=== PATIENT | female | born 1955 | race Caucasian/White ===

== ENCOUNTER 2016-11-06 05:40 | Day surgery (SDC) | payer MEDICAID ==
[2016-11-05 15:00] LABS: BASOPHILS 0.6 % (0-2); EOSINOPHILS 2.5 % (0-7); HEMATOCRIT 37.5 % (36.0-48.0); HEMOGLOBIN 11.9 g/dL (12-16); IMMATURE GRANULOCYTES 0.6 % (0-5); LYMPHOCYTES 28.1 % (15-50); MCHC 31.7 g/dL (31.0-37.0); MCV 94.5 fL (80.0-100.0); MEAN PLATELET VOLUME 9.5 fL (7.4-10.4); MONOCYTES 5.9 % (2-11); NEUTROPHILS 62.3 % (40-80); PLATELET COUNT 234 10x3/uL (130-400); RBC 3.97 10x6/uL (4.00-5.40); WBC 8.3 10x3/uL (4.8-10.8)
[~2016-11-06] VITALS: Ht 160 cm; Wt 104.3 kg
[~2016-11-06 05:40] MED LIST: CELEXA40 MG; CELEXA40 MG PO; HYZAAR 50-12.51 TAB PO; OMEPRAZOLE20 M1 PO; TRAZODONE HCL50 MG PO; ZOCOR10 MG
[2016-11-06] MEDS ORDERED: ZYRTEC10 MG PO (06:17)
[2016-11-06 06:18] VITALS: BP 127/71; Ht 160 cm; Wt 104.3 kg
[2016-11-06] MEDS ORDERED: XANAX0.5 MG PO (06:18)
--- NOTE | 2016-11-06 09:28 | NUR ---
PATIENT RATING PAIN AT AN 8, REBLOCKED BY ANESTHESIA
--- NOTE | 2016-11-06 11:05 | NUR ---
1025--PT COMPLAINS OF PAIN, RATES PAIN 7/10. NORCO 10/325MG X2 GIVEN PO, WILL CONTINUE TO MONITOR. LUCILA MALDONADO 1105--PT REPORTS FEELING BETTER, RATES PAIN 5/10. IV DC'D, PT UP TO DRESS AT THIS TIME. LUCILA MALDONADO
--- NOTE | 2016-11-06 17:07 | NUR ---
1120--IV DC'D. LUCILA MALDONADO 1127--DISCHARGE INSTRUCTIONS GIVEN, PT VERBALIZES UNDERSTANDING. PT OFF UNIT VIA WC. LUCILA MALDONADO
== END 2016-11-06 11:27 | disposition home or self-care (01) ==
LOC: D.OPS 05:40 → D.PAN 07:45 → D.OPS 07:45
PROVIDERS: Anesthesiology
DX: M77.32 Calcaneal spur, left foot (principal); M76.62 Achilles tendinitis, left leg; Z01.810 Encounter for preprocedural cardiovascular examination; Z01.811 Encounter for preprocedural respiratory examination; Z01.812 Encounter for preprocedural laboratory examination

== ENCOUNTER → 2016-11-13 12:10 | Outpatient (CLI) | payer MEDICAID ==
[2016-11-06 06:18] VITALS: BMI 40.8
[~2016-11-13 12:10] MED LIST changes: +XANAX0.5 MG PO; +ZYRTEC10 MG PO
== END | disposition home or self-care (01) ==
LOC: D.US 12:10
DX: I82.4Z2 Acute embolism and thrombosis of unspecified deep veins of left distal lower extremity (principal)

== ENCOUNTER 2016-12-02 13:43 | Emergency (ER) | payer MEDICAID ==
[2016-11-06 06:18] VITALS: BMI 40.8
== END 2016-12-02 18:15 | disposition home or self-care (01) ==
LOC: D.ER 13:43
DX: I82.402 Acute embolism and thrombosis of unspecified deep veins of left lower extremity (principal); M79.662 Pain in left lower leg; R22.42 Localized swelling, mass and lump, left lower limb; I10 Essential (primary) hypertension; F32.9 Major depressive disorder, single episode, unspecified

== ENCOUNTER 2017-04-14 16:07 | Emergency (ER) | payer MEDICAID ==
[2016-11-06 06:18] VITALS: BMI 40.8
== END 2017-04-14 18:20 | disposition home or self-care (01) ==
LOC: D.ER 16:07
DX: S00.83XA Contusion of other part of head, initial encounter (principal); S60.212A Contusion of left wrist, initial encounter; S80.02XA Contusion of left knee, initial encounter; W19.XXXA Unspecified fall, initial encounter; Y93.89 Activity, other specified; Y92.019 Unspecified place in single-family (private) house as the place of occurrence of the external cause; I10 Essential (primary) hypertension

== ENCOUNTER → 2017-06-16 17:51 | Outpatient (CLI) | payer MEDICAID ==
[2016-11-06 06:18] VITALS: BMI 40.8
== END | disposition home or self-care (01) ==
LOC: D.MAMMO 04-25 15:00
DX: Z12.31 Encounter for screening mammogram for malignant neoplasm of breast (principal)

== ENCOUNTER → 2017-08-06 19:29 | Outpatient (CLI) | payer MEDICAID ==
[2016-11-06 06:18] VITALS: BMI 40.8
== END | disposition home or self-care (01) ==
LOC: D.MAMMO 07-28 15:00 → D.US 07-28 15:30 → D.MAMMO 13:30
DX: N63.20 Unspecified lump in the left breast, unspecified quadrant (principal); R92.8 Other abnormal and inconclusive findings on diagnostic imaging of breast

== ENCOUNTER → 2017-09-10 10:39 | Outpatient (CLI) | payer MEDICAID ==
[2016-11-06 06:18] VITALS: BMI 40.8
== END | disposition home or self-care (01) ==
LOC: D.US 10:39
DX: R10.9 Unspecified abdominal pain (principal)

== ENCOUNTER → 2017-09-18 12:26 | Outpatient (CLI) | payer MEDICAID ==
[2016-11-06 06:18] VITALS: BMI 40.8
== END | disposition home or self-care (01) ==
LOC: D.CT 12:26
DX: N13.30 Unspecified hydronephrosis (principal)

== ENCOUNTER 2017-11-02 09:37 | Emergency (ER) | payer MEDICAID ==
[~2017-11-02] VITALS: Ht 160 cm; Wt 108.2 kg
[2017-11-02 09:44] VITALS: Ht 160 cm; Wt 108.2 kg
[2017-11-02 10:10] LABS: BASOPHILS 0.4 % (0-2); EOSINOPHILS 2.6 % (0-7); HEMATOCRIT 39.4 % (36.0-48.0); IMMATURE GRANULOCYTES 0.3 % (0-5); MCH 31.4 pg (26.0-34.0); MCV 95.2 fL (80.0-100.0); MEAN PLATELET VOLUME 9.3 fL (7.4-10.4); MONOCYTES 7.3 % (2-11); NEUTROPHILS 65.4 % (40-80); PLATELET COUNT 208 10x3/uL (130-400); RBC 4.14 10x6/uL (4.00-5.40); RDW 13.4 % (11.5-14.5); WBC 7.2 10x3/uL (4.8-10.8)
[2017-11-02 10:27] LABS: ALBUMIN 3.4 g/dL (3.4-5.0); ANION GAP 10.5 mmol/L (8-16); BILIRUBIN - TOTAL 0.48 mg/dL (0.2-1.3); CALCIUM 8.7 mg/dL (8.5-10.1); POTASSIUM - SERUM 3.5 mmol/L (3.5-5.1); PROTEIN - SERUM 7.5 g/dL (6.4-8.2)
[2017-11-02 11:56] VITALS: BP 136/86
== END 2017-11-02 11:57 | disposition home or self-care (01) ==
LOC: D.ER 09:37
PROVIDERS: Family Medicine
DX: K64.9 Unspecified hemorrhoids (principal); K59.00 Constipation, unspecified; I10 Essential (primary) hypertension

== ENCOUNTER → 2018-04-29 20:08 | Outpatient (CLI) | payer MEDICAID ==
[2017-11-02 09:44] VITALS: BMI 42.2
== END | disposition home or self-care (01) ==
LOC: D.MAMMO 04-27 10:30 → D.US 04-27 11:00 → D.MAMMO 14:00
DX: N63.21 Unspecified lump in the left breast, upper outer quadrant (principal)

== ENCOUNTER 2019-04-27 15:11 | Inpatient (IN) | payer MEDICAID ==
[~2019-04-27] VITALS: Ht 160 cm; Wt 91.8 kg
[2019-04-27 16:07] LABS: BASOPHILS 0.4 % (0-2); EOSINOPHILS 1.5 % (0-7); HEMATOCRIT 43.6 % (36.0-48.0); HEMOGLOBIN 14.8 g/dL (12-16); IMMATURE GRANULOCYTES 0.4 % (0-5); LYMPHOCYTES 19.4 % (15-50); MCH 32.4 pg (26.0-34.0); MCHC 33.9 g/dL (31.0-37.0); MCV 95.4 fL (80.0-100.0); MEAN PLATELET VOLUME 9.3 fL (7.4-10.4); MONOCYTES 7.1 % (2-11); NEUTROPHILS 71.2 % (40-80); RBC 4.57 10x6/uL (4.00-5.40); RDW 12.7 % (11.5-14.5); WBC 10.9 10x3/uL (4.8-10.8)
[2019-04-27 16:08] LABS: PLATELET COUNT 250 10x3/uL (130-400)
[2019-04-27 16:24] LABS: ANION GAP 11.4 mmol/L (8-16); CALCIUM 9.3 mg/dL (8.5-10.1); CARBON DIOXIDE 27.9 mmol/L (21.0-32.0); CREATININE - SERUM 0.9 mg/dL (0.6-1.3); INR 0.99 (0.85-1.17); POTASSIUM - SERUM 3.3 mmol/L (3.5-5.1); PROTIME 13.1 SECONDS (11.6-15.0)
[2019-04-27 16:30] LABS: ALBUMIN 3.7 g/dL (3.4-5.0); BILIRUBIN - TOTAL 0.46 mg/dL (0.2-1.3); PROTEIN - SERUM 8.2 g/dL (6.4-8.2)
[2019-04-27 16:39] VITALS: BP 175/75
[2019-04-27 17:43] VITALS: BP 134/88
[2019-04-27] MEDS ORDERED: VALSARTAN-HCTZ1 EAC4 PO (23:03)
[2019-04-27 23:39] VITALS: BP 173/85; BMI 35.8
--- NOTE | 2019-04-28 00:03 | NUR ---
PATIENT ARIVED TO UNIT ALERT AND ORENTED X 4. ABLE TO VOICE NEEDS AND WANTS TO STAFF. REFUSED SCD'S STATED SHE IS UP WALKING AND DIDNOT NEED THEM. WATER AND CALL LIGHT IN REACH.
[2019-04-28 05:14] VITALS: BP 153/79
[2019-04-28 06:46] LABS: BASOPHILS 0.4 % (0-2); EOSINOPHILS 2.2 % (0-7); HEMATOCRIT 40.9 % (36.0-48.0); HEMOGLOBIN 13.7 g/dL (12-16); IMMATURE GRANULOCYTES 0.1 % (0-5); LYMPHOCYTES 28.8 % (15-50); MCH 31.9 pg (26.0-34.0); MCHC 33.5 g/dL (31.0-37.0); MCV 95.3 fL (80.0-100.0); MEAN PLATELET VOLUME 9.2 fL (7.4-10.4); MONOCYTES 8.2 % (2-11); NEUTROPHILS 60.3 % (40-80); PLATELET COUNT 218 10x3/uL (130-400); RBC 4.29 10x6/uL (4.00-5.40); RDW 12.7 % (11.5-14.5)
[2019-04-28 07:09] LABS: ALBUMIN 3.4 g/dL (3.4-5.0); ANION GAP 12.9 mmol/L (8-16); BILIRUBIN - TOTAL 0.61 mg/dL (0.2-1.3); CARBON DIOXIDE 27.4 mmol/L (21.0-32.0); CREATININE - SERUM 0.9 mg/dL (0.6-1.3); POTASSIUM - SERUM 3.3 mmol/L (3.5-5.1); PROTEIN - SERUM 7.6 g/dL (6.4-8.2)
[2019-04-28 07:32] VITALS: BP 161/88
--- NOTE | 2019-04-28 10:43 | NUR ---
RESTING IN BED. ALERT AND ORIENTED. LUNGS CLEAR BILATERALLY. HEART SOUNDS S1 AND S2 HEARD IN ALL LEVY. BOWEL SOUNDS ACTIVE X 4. SKIN INTACT WITHOUT REDNESS. IV TO LEFT AC PATENT WITHOUT REDNESS. DENIES NEEDS. BED LOW. CALL YAN AND PERSONAL ITEMS IN REACH. WILL CONTINUE TO MONITOR.
--- NOTE | 2019-04-28 11:06 | NUR ---
SPOKE WITH DR FRANKEL NURSE PER PATIENTS REQUEST TO SEE IF COULD GET PRN PAIN MEDICATION AND IF WAS PLANNING TO RESTART HOME MEDS. STATES WILL TALK TO DR FRANKEL AND CALL BACK.
[2019-04-28 13:55] VITALS: Ht 160 cm; Wt 91.8 kg
[2019-04-28 16:05] VITALS: BP 152/76
[2019-04-28 19:30] VITALS: BP 170/89
[2019-04-29 00:30] VITALS: BP 168/84
--- NOTE | 2019-04-29 05:25 | NUR ---
I have reviewed this patient and I concur with the Shift Assessment completed by the Licensed Practical Nurse today this shift.
[2019-04-29 05:30] VITALS: BP 168/86
--- NOTE | 2019-04-29 05:52 | NUR ---
PT RESTING IN BED. EYES CLOSED. NO SIGNS OF DISTRESS. BREATHING EVEN AND UNLABORED. IV SITE LT AC DRESSING CLEAN DRY AND INTACT. NO SIGNS OF INFECTION. WILL CONTINUE PLAN OF CARE. CALL LIGHT IN REACH. BED LOWERED AND LOCKED.
--- NOTE | 2019-04-29 07:10 | NUR ---
PT RESTING IN BED. NO SIGNS OF DISTRESS. IV TO LEFT AC PATENT NO REDNESS OR TENDERNESS. ON TELEMETRY 66 SR. DENIES ANY FURTHER NEED AT THIS TIME. CALL LIGHT IN REACH. BED LOW POSITION. NO FAMILY AT BEDSIDE AT THIS TIME.
[2019-04-29 09:20] VITALS: BP 181/83
[2019-04-29 12:31] VITALS: BP 187/89
[2019-04-29] MEDS ORDERED: FLAGYL500 MG PO (14:03)
[2019-04-29] MEDS ORDERED: LEVOFLOXACIN500 MG PO (14:04)
--- NOTE | 2019-04-29 14:27 | MORECARE ---
CASE MANAGEMENT DISCHARGE SUMMARY PATIENT: MAXWELL CONNER UNIT: [id number] ADM DATE: 04/27/19 AGE: 63 : 57 SEX: F ROOM/BED: D.2225 AUTHOR: JASON,DOC PHYSICIAN: REFERRING PHYSICIAN: DINORA HERNÁNDEZ MD DATE OF SERVICE: 04/29/19 Discharge Plan Patient Name: MAXWELL CONNER Facility: [facility]:[place] : 1955 Planned Disposition: Home Anticipated Discharge Date: 04/29/19 Discharge Date: Expected LOS: 2 Initial Reviewer: [email or web address] Initial Review Date: 04/29/2019 Generated: 04/29/19 3:26 pm Comments DCP- Discharge Planning Updated by [email or web address]: Monique Benson on 04/29/19 1:[address] Patient Name: MAXWELL CONNER Admission Status: ER Accout number: [id number] Admission Date: 04-27-2019 : 1955 Admission Diagnosis: Attending: DINORA HERNÁNDEZ Current LOS: 2 Anticipated DC Date: 04-29-2019 Planned Disposition: Home [place] [employer] [place] Discharge Planning Comments: CM met with patient to complete initial dc planning assessment. CM educated patient on the CM role and verbal consent given by patient to complete assessment. Patient lives at home alone. At discharge patient plans to return and feels this is a safe discharge. CM discussed availability of home health, rehab services, and medical equipment. Patient denied known discharge needs at this time. CM will continue to follow and will assist as needed with dc plans/needs. Center Human Resources Manager: Monique Benson DCPIA - Discharge Planning Initial Assessment Updated by [email or web address]: Monique Benson on 04/29/19 2:23 pm * Is the patient Alert and Oriented? Yes * How many steps to enter\exit or inside your home? few/0 * PCP Anne-Marie Mata APN at Dr. Hernández's office * Pharmacy [facility] on [address] * Preadmission Environment Home Alone * ADLs Independent * Equipment None * List name and contact numbers for known caregivers / representatives who currently or will assist patient after discharge: Missy Morgan [facility] - [phone] * Verbal permission to speak to the caregivers and representatives has been obtained from the patient. Yes * Community resources currently utilized None * Additional services required to return to the preadmission environment? No * Can the patient safely return to the preadmission environment? Yes * Has this patient been hospitalized within the prior 30 days at any hospital? No Patient Name: MAXWELL CONNER Page [id number] at 1427 All edits/amendments must be made on the electronic document DICTATION DATE: 04/29/191425 HAND ROUTER OPERATOR: JASMIN 04/29/191425 RPT#: [id number] DC DATE: STATUS: ADM IN [facility] [address] [place] [address] END OF REPORT
--- NOTE | 2019-04-29 16:23 | NUR ---
DISCHARGE INSTRCUTION GIVEN. SEEMS TO UNDERSTAND INSTRUCTIONS. IV OUT TIP INTACT. TELEMETRY OFF AND RETURNED. LEFT WITH HOSPITAL STAFF TO GO HOME IN PERSONAL RIDE.
--- NOTE | 2019-05-02 12:34 | MORECARE ---
CASE MANAGEMENT DISCHARGE SUMMARY PATIENT: MAXWELL CONNER UNIT: [id number] ADM DATE: 04/27/19 AGE: 63 : 57 SEX: F ROOM/BED: D.2225 AUTHOR: JASON,DOC PHYSICIAN: REFERRING PHYSICIAN: DINORA HERNÁNDEZ MD DATE OF SERVICE: 05/02/19 Discharge Plan Patient Name: MAXWELL CONNER Facility: [facility]:[place] : 1955 Planned Disposition: Home Anticipated Discharge Date: 04/29/19 Discharge Date: 04/29/2019 Expected LOS: 2 Initial Reviewer: [email or web address] Initial Review Date: 04/29/2019 Generated: 05/02/19 1:33 pm Comments DCP- Discharge Planning Updated by [email or web address]: Monique Benson on 04/29/19 1:[address] Patient Name: MAXWELL CONNER Admission Status: ER Accout number: [id number] Admission Date: 04-27-2019 : 1955 Admission Diagnosis: Attending: DINORA HERNÁNDEZ Current LOS: 2 Anticipated DC Date: 04-29-2019 Planned Disposition: Home [place] Insurance: [place] [employer] [place] Discharge Planning Comments: CM met with patient to complete initial dc planning assessment. CM educated patient on the CM role and verbal consent given by patient to complete assessment. Patient lives at home alone. At discharge patient plans to return and feels this is a safe discharge. CM discussed availability of home health, rehab services, and medical equipment. Patient denied known discharge needs at this time. CM will continue to follow and will assist as needed with dc plans/needs. Second Cook And Baker: Monique Benson DCPIA - Discharge Planning Initial Assessment Updated by [email or web address]: Monique Benson on 04/29/19 2:23 pm * Is the patient Alert and Oriented? Yes * How many steps to enter\exit or inside your home? few/0 * PCP Anne-Marie Mata APN at Dr. Hernández's office * Pharmacy [facility] [address] * Preadmission Environment Home Alone * ADLs Independent * Equipment None * List name and contact numbers for known caregivers / representatives who currently or will assist patient after discharge: Missy Morgan - DTR - [phone] * Verbal permission to speak to the caregivers and representatives has been obtained from the patient. Yes * Community resources currently utilized None * Additional services required to return to the preadmission environment? No * Can the patient safely return to the preadmission environment? Yes * Has this patient been hospitalized within the prior 30 days at any hospital? No Last DP export: 04/29/19 1:27 pm Patient Name: MAXWELL CONNER Page [phone] at 1234 All edits/amendments must be made on the electronic document DICTATION DATE: 05/02/19 1233 BROKER IN CHARGE: AJSMIN 05/02/19 1233 RPT#: [id number] DC DATE:04/29/19 STATUS: DIS IN [facility] [address] [place] [address] END OF REPORT
== END 2019-04-29 16:24 | disposition home or self-care (01) | DRG 379 ==
LOC: D.ER 15:11 → D.MS 20:18
PROVIDERS: Family Medicine; ADMIT Family Medicine; ATTEND Family Medicine
DX: K57.33 Diverticulitis of large intestine without perforation or abscess with bleeding (principal); I10 Essential (primary) hypertension; K22.70 Barrett's esophagus without dysplasia; K21.9 Gastro-esophageal reflux disease without esophagitis; Z78.0 Asymptomatic menopausal state

== ENCOUNTER → 2019-05-14 10:00 | Outpatient (CLI) | payer MEDICAID ==
[2019-04-28 13:55] VITALS: BMI 35.8
[~2019-05-14 10:00] MED LIST changes: +FLAGYL500 MG PO; +LEVOFLOXACIN500 MG PO; +VALSARTAN-HCTZ1 EAC4 PO
== END | disposition home or self-care (01) ==
LOC: D.MAMMO 10:00
PROVIDERS: ATTEND Nurse Practitioner Family
DX: Z12.31 Encounter for screening mammogram for malignant neoplasm of breast (principal)

== ENCOUNTER → 2019-06-29 08:53 | Outpatient (CLI) | payer MEDICAID ==
[2019-04-28 13:55] VITALS: BMI 35.8
[2019-06-30 11:09] LABS: HEPATITIS C ANTIBODY 0.3 (0.0-0.9)
== END | disposition home or self-care (01) ==
LOC: D.NM 08:53
PROVIDERS: ATTEND Internal Medicine Gastroenterology
DX: R10.11 Right upper quadrant pain (principal); R11.0 Nausea

== ENCOUNTER 2019-07-22 20:47 | Emergency (ER) | payer MEDICAID ==
[~2019-07-22] VITALS: Ht 160 cm; Wt 93.2 kg
[2019-07-22 20:50] VITALS: Ht 160 cm; Wt 93.2 kg
[2019-07-22] MEDS ORDERED: COZAAR25 MG PO (20:56)
[2019-07-22] MEDS ORDERED: ZOCOR10 MG PO (20:56)
[2019-07-22 21:03] LABS: BASOPHILS 0.6 % (0-2); EOSINOPHILS 2.4 % (0-7); HEMATOCRIT 38.7 % (36.0-48.0); HEMOGLOBIN 12.1 g/dL (12-16); IMMATURE GRANULOCYTES 0.3 % (0-5); LYMPHOCYTES 37.3 % (15-50); MCH 31.6 pg (26.0-34.0); MCHC 31.3 g/dL (31.0-37.0); MEAN PLATELET VOLUME 9.3 fL (7.4-10.4); MONOCYTES 6.4 % (2-11); PLATELET COUNT 234 10x3/uL (130-400); RBC 3.83 10x6/uL (4.00-5.40); RDW 13.1 % (11.5-14.5); WBC 6.7 10x3/uL (4.8-10.8)
[2019-07-22 21:14] LABS: APTT 25.4 SECONDS (22.8-39.4); INR 0.93 (0.85-1.17); PROTIME 12.4 SECONDS (11.6-15.0)
[2019-07-22 21:17] LABS: CALC OSMOLALITY 280 mosm/kg (275-300); CALCIUM 8.8 mg/dL (8.5-10.1); CARBON DIOXIDE 30.6 mmol/L (21.0-32.0); CHLORIDE - SERUM 101 mmol/L (98-107); GLUCOSE 97 mg/dL (74-106); POTASSIUM - SERUM 3.7 mmol/L (3.5-5.1); SODIUM 138 mmol/L (136-145); UREA NITROGEN 26 mg/dL (7-18); eGFR NON AFRICAN AMERICAN 59 mL/min (90-120)
[2019-07-22 21:33] LABS: ALBUMIN 3.5 g/dL (3.4-5.0); ALKALINE PHOSPHATASE 80 U/L (30-120); ALT (SGPT) 26 U/L (10-68); BILIRUBIN - TOTAL 0.37 mg/dL (0.2-1.3); CKMB 1.4 U/L (0.0-3.6); CREATINE KINASE 144 UL (21-215); LIPASE 141 U/L (73-393); PROTEIN - SERUM 7.7 g/dL (6.4-8.2)
[2019-07-22 21:38] LABS: TROPONIN-I < 0.017 ng/mL (0.000-0.060)
[2019-07-23 01:07] VITALS: BP 149/89
== END 2019-07-23 01:08 | disposition home or self-care (01) ==
LOC: D.ER 20:47
PROVIDERS: Family Medicine
DX: K22.70 Barrett's esophagus without dysplasia (principal); E86.0 Dehydration; I10 Essential (primary) hypertension; K21.9 Gastro-esophageal reflux disease without esophagitis

== ENCOUNTER → 2019-10-26 12:57 | Outpatient (CLI) | payer MEDICAID ==
[2019-07-22 20:50] VITALS: BMI 36.3
--- NOTE | ~2019-10-26 | HEMODYNAMI ---
PATIENT:MAXWELL CONNER MEDICAL RECORD: [id number] : 57 LOCATION:[facility] ADMISSION DATE: 10/26/19 Generatedon:10/26/201914:03 Patient name: MAXWELL CONNER Patient #: [id number] SSN: DO B: 1955 Date of study: 10/26/2019 Page: Of Hemodynamic Procedure Report Patient Data Patient Demographics Procedure consent was obtained First Name: MAXWELL Gender: Female Last Name: UBALDO : 1955 [facility] Initial: ASYA Age: 64 year(s) Patient #: [id number] Race: Unknown Additional ID: [id number] Contact details Address: [address] [place] [address] State: [place]: [facility] [place] Zip code: [address] Admission Admission Data Admission Date: 10/26/2019 Admission Time: 12:57 Procedure Procedure Types Cath Procedure Peripheral Cath Diagnostic Procedure Miscellaneous Aspiration/Injection (Joint) Procedure Description Procedure Date Procedure Date: 10/26/2019 Procedure Start Time: 13:53 Procedure Staff Name Function Richard Castro MD Performing Physician Cristopher Carpenter RT Monitor Procedure Data Cath Procedure Fluoroscopy Diagnostic fluoroscopy Total fluoroscopy Time: 0.2 time: 0.2 min min Diagnostic fluoroscopy Total fluoroscopy dose: 4 dose: 4 mGy mGy Hemodynamics Rest Pre Cath Intra NCS Post Cath Procedure Log Time Note 13:45:04 Cristopher Carpenter RT (R) (CV) sent for patient. Start room use. 13:45:11 Time tracking: Regular hours (M-F 7:00 - 5:00) 13:45:23 Patient received from Other to IR Alert and oriented. Tansferred to table in Supine position. 13:45:25 Signed procedure consent form obtained from patient. 13:45:26 Correct patient and procedure confirmed by team. 13:45:27 Full Disclosure recording started 13:45:30 - 13:45:31 Pre-op teaching completed and patient verbalized understanding. 13:45:32 Pre-procedure instructions explained to patient. 13:45:39 Is patient on blood thinner?No 13:45:49 NKDA 13:46:10 Right Hip was prepped with betadine and draped in sterile fashion. 13:52:59 Physician arrived 13:52:59 --------ALL STOP TIME OUT------ 13:53:00 Final Timeout: patient, procedure, and site verified with staff and physician. All members of the team are in agreement. 13:53:05 Right groin site verified by team. 13:53:12 Sedation plan: Local Anesthetic Medication:Lidocaine 13:53:22 Procedure started. 13:53:30 Local anesthetic to Right Hip with Lidocaine 1% by Richard Castro MD.INITIAL ACCESS ONLY 13:56:49 SAFE-T PLUS MYELOGRAM TRAY opened to sterile field. 14:01:47 Procedure ended.(Physican Out) 14:02:18 Fluoroscopy time 00.20 minutes. 14:02:21 Fluoroscopy dose: 4 mGy 14:02:21 Flurop Dose total: 4 14:02:41 SITE STABLE BANDAIDE APPLIED PT SENT HOME Device Usage Item Name Manufacture Quantity Catalog Hospital Part Current Minimal Lot# / Number Charge Number Stock Stock Serial# Code SAFE-T [employer]usion 1 [id number] PLUS MYELOGRAM TRAY Signature Audit [place] Stage Time Signature Unsigned Intra-Procedure 10/26/2019 Cristopher 2:03:04 PM Jayden RT (R) (CV) [facility] [address] [place] [address]
[~2019-10-26 12:57] MED LIST changes: +COZAAR25 MG PO; +ZOCOR10 MG PO
== END | disposition home or self-care (01) ==
LOC: D.RAD 09-16 13:00
PROVIDERS: ATTEND Clinical Nurse Specialist Family Health
DX: M16.11 Unilateral primary osteoarthritis, right hip (principal)

== ENCOUNTER → 2019-12-23 07:00 | Outpatient (CLI) | payer MEDICAID ==
[2019-07-22 20:50] VITALS: BMI 36.3
[~2019-12-23 07:00] MED LIST changes: +HYDROCODON-ACE1 EA10 PO; +ULTRAM50 MG PO
--- NOTE | 2019-12-23 13:13 | OP ---
PATIENT NAME: MAXWELL CONNER MEDICAL RECORD: [id number] :[birth year] LOCATION:.[facility] ADMISSION DATE: SURGEON: ASHLEY ANAND MD DATE OF OPERATION: 12/23/2019 PREOPERATIVE DIAGNOSES: Impingement syndrome of the left shoulder with rotator cuff tear. POSTOPERATIVE DIAGNOSES: Impingement syndrome of the left shoulder with rotator cuff tear, biceps tendinitis. PROCEDURES: 1. Arthroscopic rotator cuff repair. 2. Arthroscopic distal clavicle excision done through separate incision -- 1 cm 3. Arthroscopic subacromial decompression with acromioplasty and bursectomy. 4. Biceps tenotomy. SURGEON: Ashley Anand MD ANESTHESIA: General. INTRAOPERATIVE COMPLICATIONS: None. SUMMARY OF PATHOLOGIC FINDINGS: The patient did indeed was found to have a full thickness rotator cuff tear as well as severe biceps tendinitis, also had downward sloping acromion and grade IV chondromalacia of the acromioclavicular joint. OPERATIVE SUMMARY IN DETAIL: After obtaining the appropriate preoperative orthopedic surgery consent as well as anesthetic consultation, evaluation and clearance, the patient was brought to the operating room and placed on the operating table in supine position. After adequate general laryngeal mask airway was administered, the patient was placed in the right lateral decubitus position. All pressure points were well padded to include down leg peroneal pad as well as axillary roll. The patient was held firmly to the operating table using the vacuum pack suction system. Left upper extremity and shoulder were then prepped and draped in routine sterile fashion. The arm was held in the Arthrex traction boom at 30 degrees of forward flexion, 30 degrees of abduction, and 10 pounds of traction laterally. At this point, appropriate time was taken and agreed upon by all given the patient's unique identifiers. Arthroscopy was established in the glenohumeral joint from a posterior portal. Anterior portal was established in the anterior safe interval. Diagnostic arthroscopy did show the patient had full thickness rotator cuff tear. Transrotator cuff portal was created for debridement of the supraspinatus tendinous footprint as well as portions of friable rotator cuff. At this point, the biceps tendon was released. Having found the severe biceps tendinitis, mild labral debridement was also achieved. Attention was then turned to the subacromial space. Through the accessory lateral portal that had already been created, [place] tissue ablation system was used to denude the undersurface of the acromion of all soft tissue elements and release the coracoacromial ligament. A 5-0 barrel bur was then used to perform acromioplasty at the level of acromioclavicular joint and through a separate arthroscopic anterior portal under direct OPERATIVE REPORT [id number] MAXWELL CONNER visualization. A 5.0 barrel bur was used to perform distal clavicle excision. Having completed this, arthroscopy portals were closed in routine interrupted fashion using 4-0 Prolene. Sterile dressings were applied. The patient was awakened and taken to recovery room in stable condition. All final needle and sponge counts were correct. TRANSINT:[id number] Voice Confirmation ID: [id number] DOCUMENT ID: [id number] CHENG STEPHEN, ASHLEY SANTIZO at 1313 CC: [id number] DICTATION DATE: 12/23/19 1124 SECURITY SUPERVISOR: 12/23/19 1254 REG [facility] [address] [place] [address]
== END | disposition home or self-care (01) ==
LOC: D.LAB 11-11 10:15 → D.US 11-11 10:30 → D.LAB 07:00
PROVIDERS: ATTEND Internal Medicine Gastroenterology
DX: K76.0 Fatty (change of) liver, not elsewhere classified (principal)

== ENCOUNTER → 2019-12-23 19:52 | Day surgery (SDC) | payer MEDICAID ==
[2019-12-21 09:28] LABS: BASOPHILS 0.6 % (0-2); EOSINOPHILS 2.4 % (0-7); HEMATOCRIT 37.7 % (36.0-48.0); HEMOGLOBIN 12.1 g/dL (12-16); IMMATURE GRANULOCYTES 0.3 % (0-5); LYMPHOCYTES 27.9 % (15-50); MCH 31.6 pg (26.0-34.0); MCHC 32.1 g/dL (31.0-37.0); MCV 98.4 fL (80.0-100.0); MEAN PLATELET VOLUME 9.1 fL (7.4-10.4); MONOCYTES 7.3 % (2-11); NEUTROPHILS 61.5 % (40-80); PLATELET COUNT 231 10x3/uL (130-400); RBC 3.83 10x6/uL (4.00-5.40); RDW 12.9 % (11.5-14.5); WBC 6.3 10x3/uL (4.8-10.8)
[2019-12-21 09:37] LABS: ANION GAP 9.6 mmol/L (8-16); CALCIUM 8.7 mg/dL (8.5-10.1); CARBON DIOXIDE 31.6 mmol/L (21.0-32.0); CREATININE - SERUM 0.9 mg/dL (0.6-1.3); POTASSIUM - SERUM 4.2 mmol/L (3.5-5.1)
[~2019-12-23] VITALS: Ht 160 cm; Wt 97.3 kg
[2019-12-23 07:56] VITALS: BP 123/77; Ht 160 cm; Wt 97.3 kg
--- NOTE | 2019-12-23 19:18 | NUR ---
PT STATES PAIN IS MANAGABLE 4/10 AFTER IV DILAUDED IN PACU. DR ANAND AT BEDSIDE AND RX'D PERCOCET. IV D/C'D WITH CANNULA INTACT, PRESSURE HELD AND DRSG PLACED. DISCHARGE INSTRUCTION GIVEN AND PT VERBALIZED AN UNDERSTANDING,
== END | disposition home or self-care (01) ==
LOC: D.OPS 12-21 08:04 → D.PAN 14:00 → D.OPS 19:52
PROVIDERS: Anesthesiology; ATTEND Orthopaedic Surgery
DX: M75.42 Impingement syndrome of left shoulder (principal); M75.102 Unspecified rotator cuff tear or rupture of left shoulder, not specified as traumatic; M25.572 Pain in left ankle and joints of left foot; M75.22 Bicipital tendinitis, left shoulder; M13.812 Other specified arthritis, left shoulder

== ENCOUNTER → 2020-08-08 13:11 | Outpatient (CLI) | payer BC ==
[2019-12-23 07:56] VITALS: BMI 37.9
== END | disposition home or self-care (01) ==
LOC: D.US 13:11
PROVIDERS: ATTEND Nurse Practitioner
DX: R10.2 Pelvic and perineal pain (principal)

== ENCOUNTER 2020-10-02 14:30 | Outpatient (CLI) | payer BC ==
[2019-12-23 07:56] VITALS: BMI 37.9
== END 2020-10-02 23:59 | disposition home or self-care (01) ==
LOC: D.MAMMO 14:30
PROVIDERS: ATTEND Nurse Practitioner
DX: Z12.31 Encounter for screening mammogram for malignant neoplasm of breast (principal)